=== PATIENT | male | born 1985 | race Caucasian/White ===

== ENCOUNTER 2017-09-08 00:19 | Emergency (ER) | payer OTHER ==
[2017-09-08] MEDS ORDERED: diphenhydrAMINE 50 MG Cap PO ONE (01:09)
--- NOTE | 2017-09-08 08:37 | EDM.PDOC ---
ED HPI GENERAL MEDICAL PROBLEM - General Chief Complaint: Skin Complaint Stated Complaint: rash Time Seen by Provider: 09/08/17 00:30 Source of Information: Reports: Patient History Limitations: Reports: No Limitations - History of Present Illness INITIAL COMMENTS - FREE TEXT/NARRATIVE: According to patient he has been having itchy rash for about 1 wk now.Rash are all over the body, and very itchy, itching gets worse at night. He now has the rash spread into his groin and genital region and his buttock, cannot sleep at night. No open wounds or sore. Pt claims that [place] has [place] moved [place] the town. No fever or chills. No joint pain or swelling. No other complaints. Duration: Week(s): (1) Severity: Moderate Improves with: Reports: None Worsens with: Reports: None Associated Symptoms: Reports: Rash. Denies: Confusion, Cough, Fever/Chills, Loss of Appetite, Nausea/Vomiting, Seizure, Shortness of Breath - Related Data Allergies Allergy/AdvReac Type Severity Reaction Status Date / Time Penicillins Allergy Anaphylactic Verified 09/08/17 00:28 Shock Home Meds: Home Meds NK [No Known Home Meds] 09/08/17 [History] Past Medical History HEENT History: Reports: Impaired Vision Cardiovascular History: Reports: Hypertension, [place] Genitourinary History: Reports: UTI, Recurrent Musculoskeletal History: Reports: Arthritis Social & Family History - Family History Family Medical History: Noncontributory ED ROS GENERAL - Review of Systems Review Of Systems: See Below Constitutional: Denies: Fever, Chills, Fatigue, Night Sweats HEENT: Denies: Ear Pain, Rhinitis, Throat Pain, Throat Swelling Respiratory: Denies: Cough, Sputum Cardiovascular: Denies: Chest Pain, Edema GI/Abdominal: Denies: Abdominal Pain, Nausea, Vomiting : Denies: Dysuria, Frequency Musculoskeletal: Denies: Joint Pain, Joint Swelling Skin: Reports: Pruritis, Rash. Denies: Mottled, Dryness, Bruising, Erythema Neurological: Denies: Confusion, Dizziness ED EXAM, SKIN/RASH Exam: See Below Exam Limited By: No Limitations General Appearance: Alert, WD/WN, No Apparent Distress Eye Exam: Bilateral Eye: EOMI, PERRL Ears: Normal External Exam, Normal Canal, Hearing Grossly Normal, Normal TMs Nose: Normal Inspection, Normal Mucosa, No Blood Throat/Mouth: Normal Inspection, Normal Lips, Normal Teeth, Normal Gums, Normal Oropharynx, Normal Voice, No Airway Compromise Head: Atraumatic, Normocephalic Neck: Normal Inspection, Supple, Non-Tender, Full Range of Motion Respiratory/Chest: No Respiratory Distress, Lungs Clear, Normal Breath Sounds, No Accessory Muscle Use, Chest Non-Tender Cardiovascular: Normal Peripheral Pulses, Regular Rate, Rhythm, No Edema, No Gallop, No JVD, No Murmur, No Rub Skin: Warm, Intact, Other (There are small 1-2mm red papules seen all over the body more concentrated in the axilla wrist, elbow, groin, knees, buttocks and around the umbilicus. there are a few pustules seen in the same areas. + skin excoritations.) Course - Vital Signs Text/Narrative:: Pt has developed papulo-pustular lesions over the natural skin fold of the body with severe itching. It does appear like scabies from his presentation. reassured patient and discussed the findings with him. I have started him on permethrin lotion. Advised to apply the lotion all over the body and shower after 8 hrs. Wash all the clothings and fomites in hot water cycles. Repeat the treatment in 1 wk. For skin itching advised to avoid scratching, and to take benadryl 50mg 3 times daily and zantac 150mg twice daily for 1 wk. If any other family members present with similar symptoms need to be treated MOHINI.If not better followup in clinic. Last Recorded V/S: Last Vital Signs Temp 98.3 F 09/08/17 00:25 Pulse 76 09/08/17 00:25 Resp 12 09/08/17 00:25 BP 167/98 H 09/08/17 00:25 Pulse Ox - Orders/Labs/Meds Meds: Medications Discontinued Medications Generic Name Dose Route Start Last Admin Trade Name Divine PRN Reason Stop Dose Admin Diphenhydramine HCl 50 mg 09/08/17 01:09 09/08/17 00:55 Benadryl PO 09/08/17 01:10 50 mg ONETIME ONE Administration Departure - Departure Time of Disposition: 01:00 Disposition: Home, Self-Care 01 Condition: Fair Clinical Impression: Scabies - Discharge Information Instructions: Scabies, Adult Referrals: PCP,None [Primary Care Provider] - Forms: ED Department Discharge 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 Apply 1/2(half) of tube over your entire body, except for you face. (You can apply it behind your ears and on you neck). Shower 8 hours after you apply the cream. In 1 week apply the other 1/2(half) of the tube to your body again, and wait 8 hours after applying to shower. Buy Zantac from the drug store. Take 150mg (2 tablets) twice a day for one week. Buy Benadryl from the drug store. Take 50 mg (2 tablets) three times a day for one week. Wash all bedding and clothing in wash machine with laundry detergent and HOT water. - Problem List & Annotations (1) Scabies SNOMED Code(s): 759933792 Code(s): B86 - SCABIES Status: Acute - Problem List Review Problem List Initiated/Reviewed/Updated: Yes - Assessment/Plan Assessment:: Scabies Plan: Pt has developed papulo-pustular lesions over the natural skin fold of the body with severe itching. It does appear like scabies from his presentation. reassured patient and discussed the findings with him. I have started him on permethrin lotion. Advised to apply the lotion all over the body and shower after 8 hrs. Wash all the clothings and fomites in hot water cycles. Repeat the treatment in 1 wk. For skin itching advised to avoid scratching, and to take benadryl 50mg 3 times daily and zantac 150mg twice daily for 1 wk. If any other family members present with similar symptoms need to be treated MOHINI.If not better followup in clinic.
== END 2017-09-08 01:00 | disposition home or self-care (01) ==
LOC: LB.ED 00:19
DX: B86 Scabies (principal); I10 Essential (primary) hypertension; I25.2 Old myocardial infarction; Z88.0 Allergy status to penicillin
CPT/HCPCS: 99282; A9270